=== PATIENT | female | born 1940 | race Caucasian/White ===

== ENCOUNTER 2020-07-17 14:28 | Outpatient (REF) | payer MEDICARE, MEDICAID, SELFPAY | END 2020-07-17 14:29 | disposition home or self-care (01) | LOC: HO.LAB 14:28 | PROVIDERS: PCP Physician Assistant; Visit Provider Internal Medicine | DX: Z20.822 Contact with and (suspected) exposure to COVID-19 (principal) | CPT/HCPCS: 36415; C9803; U0003; U0005 ==